=== PATIENT | female | born 1965 | race Caucasian/White ===

== ENCOUNTER 2017-04-08 19:26 | Emergency (ER) | payer MEDICARE ==
[~2017-04-08 19:26] MED LIST: CEFTIN500 MG PO; FLONASE 0.05% N16 GM; LEVOTHYROXINE88 MCG PO; MEDROL4 MG PO; PROTONIX20 MG PO; SIMVASTATIN20 MG PO; SPIRIVA18 MCG INH; SYMBICORT 160-1 INHA INH; SYMBICORT 16010.2 GM INH; TOPROL XL50 MG PO; VENTOLIN HFA 66.7 GM INH; VENTOLIN/PROVE0.5 ML INH; ZESTRIL/PRINIVI10 MG PO; ZITHROMAX250 MG PO
== END 2017-04-08 20:25 | disposition home or self-care (01) ==
LOC: ER1 19:26
DX: L23.7 Allergic contact dermatitis due to plants, except food (principal); I10 Essential (primary) hypertension; J44.9 Chronic obstructive pulmonary disease, unspecified; Z90.710 Acquired absence of both cervix and uterus; Z90.49 Acquired absence of other specified parts of digestive tract
CPT/HCPCS: 96372; 99282; J2930

== ENCOUNTER 2020-11-25 20:00 | Inpatient (IN) | payer MEDICARE, OTHER ==
[~2020-11-25] VITALS: Ht 154.9 cm; Wt 59.0 kg
[~2020-11-25 20:00] MED LIST changes: +ALPRAZOLAM0.5 MG PO; +BACTROBAN OINT22 GM EXT; +BENADRYL 50MG C50 MG PO; +CYCLOBENZAPRINE10 MG PO; +IBUPROFEN600 MG PO; +LISINOPRIL20 MG PO; +LISINOPRIL40 MG PO; +LOPRESSOR100 MG PO; +MELOXICAM15 MG PO; +METOPROLOL TAR100 MG PO; +NAPROSYN500 MG PO; +PANTOPRAZOLE SO40 MG PO; +PERCOCET 5/325 T1 EA PO; +PREDNISONE 50 M50 MG PO; +PREDNISONE20 MG PO; +XANAX0.5 MG PO; +ZETIA10 MG PO; +ZOCOR40 MG PO
[2020-11-25 20:47] LABS: HEMOGLOBIN 15.3 gm/dl (12.3-15.3); RED BLOOD COUNT 4.82 M/UL (4.00-5.10); WHITE BLOOD COUNT 8.6 K/UL (4.5-11.0)
[2020-11-25 21:12] LABS: BUN/CREATININE RATIO 17 (0-10)
[2020-11-26] MEDS ORDERED: BUSPIRONE HCL5 MG PO (00:44)
[2020-11-26] MEDS ORDERED: CATAPRES 0.1MG0.1 MG PO (00:48)
[2020-11-26 06:18] LABS: HEMOGLOBIN 14.9 gm/dl (12.3-15.3); RED BLOOD COUNT 4.75 M/UL (4.00-5.10); WHITE BLOOD COUNT 8.1 K/UL (4.5-11.0)
[2020-11-26 06:39] LABS: BUN/CREATININE RATIO 15 (0-10)
[2020-11-27 05:25] LABS: BUN/CREATININE RATIO 18 (0-10)
[2020-11-28] MEDS ORDERED: LISINOPRIL20 MG PO (09:04)
[2020-11-28] MEDS ORDERED: ALPRAZOLAM0.5 MG PO (09:59)
[2020-11-28] MEDS ORDERED: HYDROCHLOROTH12.5 MG PO (10:03)
[2020-12-05 08:26] LABS: 6-ACETYLMORPHINE Negative (.); CODEINE Negative (.); DIHYDROCODEINE 1.3 ng/mL (.); HYDROCODONE 5.2 ng/mL (.); HYDROMORPHONE Negative (.); MORPHINE Negative (.); OPIATE CONFIRMATION Positive (.); OXYCODONE Negative (.); OXYCODONES CONFIRMATION Negative (.); OXYMORPHONE Negative (.)
[2020-12-05 12:14] LABS: 7-AMINOCLONAZEPAM Negative (.); ALPRAZOLAM 20.3 ng/mL (.); BENZODIAZEPINES CONFIRM Positive (.); CHLORDIAZEPOXIDE Negative (.); CLONAZEPAM Negative (.); DESALKYLFLURAZEPAM Negative (.); DESMETHYLCHLORDIAZEPOXIDE Negative (.); DESMETHYLDIAZEPAM Negative (.); DIAZEPAM Negative (.); FLURAZEPAM Negative (.); LORAZEPAM Negative (.); MIDAZOLAM Negative (.); OXAZEPAM Negative (.); TEMAZEPAM Negative (.); TRIAZOLAM Negative (.)
== END 2020-11-28 11:23 | disposition home or self-care (01) | DRG 311 ==
LOC: ER1 20:00 → PROG CARE 21:23 → ZEROF 21:23 → PROG CARE 11-27 11:09
PROVIDERS: Emergency Medicine; Internal Medicine; ADMIT Internal Medicine
DX: I20.9 Angina pectoris, unspecified (principal); I24.9 Acute ischemic heart disease, unspecified; I11.9 Hypertensive heart disease without heart failure; I10 Essential (primary) hypertension; E78.5 Hyperlipidemia, unspecified; E03.9 Hypothyroidism, unspecified; I70.1 Atherosclerosis of renal artery; F41.9 Anxiety disorder, unspecified; G47.30 Sleep apnea, unspecified; R51.9 Headache, unspecified; Z98.890 Other specified postprocedural states; Z82.49 Family history of ischemic heart disease and other diseases of the circulatory system
CPT/HCPCS: 71045; 80048; 80053; 80307; 82550; 82553; 83874; 84439; 84443; 84484; 85025; 93005; 96372; 96374; 96376; 99285; J1650; J7070; U0002; U0003

== ENCOUNTER → 2020-12-19 | Outpatient (CLI) | payer MEDICARE, OTHER ==
[~2020-12-19] MED LIST changes: +AMBIEN10 MG PO; +BUSPIRONE HCL5 MG PO; +CATAPRES 0.1MG0.1 MG PO; +HYDROCHLOROTH12.5 MG PO
== END ==
LOC: LAB 15:05
DX: M41.9 Scoliosis, unspecified (principal)

== ENCOUNTER → 2020-12-20 | Outpatient (CLI) | payer MEDICARE, OTHER ==
[2020-12-20 15:37] LABS: HEMOGLOBIN 14.1 gm/dl (12.3-15.3); RED BLOOD COUNT 4.37 M/UL (4.00-5.10); WHITE BLOOD COUNT 7.4 K/UL (4.5-11.0)
[2020-12-20 16:00] LABS: BUN/CREATININE RATIO 8 (0-10)
[2020-12-21 08:14] LABS: VITAMIN D, 25-HYDROXY 26.5 ng/mL (30.0-100.0)
[2020-12-21 13:14] LABS: CORTISOL 3.2 ug/dL (.)
== END ==
LOC: LAB 14:56
DX: M41.84 Other forms of scoliosis, thoracic region (principal); G89.4 Chronic pain syndrome; Z79.891 Long term (current) use of opiate analgesic; M51.36 Other intervertebral disc degeneration, lumbar region; M51.34 Other intervertebral disc degeneration, thoracic region
CPT/HCPCS: 36415; 72070; 72100; 80053; 82533; 82607; 85025

== ENCOUNTER 2021-01-08 15:47 | Emergency (ER) | payer MEDICARE, OTHER ==
[~2021-01-08 15:47] MED LIST changes: -AMBIEN10 MG PO
[2021-01-08 18:41] LABS: HEMOGLOBIN 13.9 gm/dl (12.3-15.3); RED BLOOD COUNT 4.34 M/UL (4.00-5.10); WHITE BLOOD COUNT 6.4 K/UL (4.5-11.0)
[2021-01-08 19:03] LABS: BUN/CREATININE RATIO 12 (0-10)
== END 2021-01-08 20:23 | disposition home or self-care (01) ==
LOC: ER1 15:47
PROVIDERS: Student in an Organized Health Care Education/Training Program
DX: I10 Essential (primary) hypertension (principal); R94.31 Abnormal electrocardiogram [ECG] [EKG]; Z88.5 Allergy status to narcotic agent; Z88.8 Allergy status to other drugs, medicaments and biological substances; Z79.899 Other long term (current) drug therapy
CPT/HCPCS: 36415; 71045; 80053; 82550; 82553; 83874; 84484; 85025; 85610; 85730; 93005; 99284

== ENCOUNTER 2021-01-16 13:30 | Emergency (ER) | payer MEDICARE, OTHER ==
[2021-01-16 14:40] LABS: HEMOGLOBIN 14.1 gm/dl (12.3-15.3); RED BLOOD COUNT 4.38 M/UL (4.00-5.10); WHITE BLOOD COUNT 7.2 K/UL (4.5-11.0)
[2021-01-16 15:39] LABS: BUN/CREATININE RATIO 11 (0-10)
== END 2021-01-16 16:00 | disposition home or self-care (01) ==
LOC: ER1 13:30
PROVIDERS: Emergency Medicine
DX: M54.6 Pain in thoracic spine (principal); G89.29 Other chronic pain; I10 Essential (primary) hypertension; E11.9 Type 2 diabetes mellitus without complications; M41.9 Scoliosis, unspecified; Z90.49 Acquired absence of other specified parts of digestive tract; Z90.710 Acquired absence of both cervix and uterus
CPT/HCPCS: 71045; 80053; 82550; 82553; 83874; 84484; 85025; 93005; 99284

== ENCOUNTER 2021-01-18 00:26 | Emergency (ER) | payer MEDICARE, OTHER ==
[2021-01-18 01:03] LABS: HEMOGLOBIN 14.4 gm/dl (12.3-15.3); RED BLOOD COUNT 4.51 M/UL (4.00-5.10); WHITE BLOOD COUNT 8.8 K/UL (4.5-11.0)
[2021-01-18 01:25] LABS: BUN/CREATININE RATIO 18 (0-10)
== END 2021-01-18 06:43 | disposition home or self-care (01) ==
LOC: ER1 00:26
PROVIDERS: Family Medicine
DX: I10 Essential (primary) hypertension (principal); R07.9 Chest pain, unspecified; Z88.8 Allergy status to other drugs, medicaments and biological substances; Z90.710 Acquired absence of both cervix and uterus
CPT/HCPCS: 71046; 80053; 82550; 82553; 83874; 84484; 85025; 93005; 99285

== ENCOUNTER → 2021-01-21 | Outpatient (CLI) | payer MEDICARE, OTHER ==
[~2021-01-21] MED LIST changes: +AMBIEN10 MG PO
== END ==
LOC: HEART CORB 08:52
DX: I10 Essential (primary) hypertension (principal); R00.2 Palpitations; R00.0 Tachycardia, unspecified; I07.1 Rheumatic tricuspid insufficiency
CPT/HCPCS: 93306

== ENCOUNTER 2021-01-27 17:57 | Emergency (ER) | payer MEDICARE, OTHER ==
[~2021-01-27 17:57] MED LIST changes: -AMBIEN10 MG PO
[2021-01-27 18:42] LABS: HEMOGLOBIN 15.7 gm/dl (12.3-15.3); RED BLOOD COUNT 4.88 M/UL (4.00-5.10); WHITE BLOOD COUNT 9.1 K/UL (4.5-11.0)
[2021-01-27 19:14] LABS: BUN/CREATININE RATIO 17 (0-10)
== END 2021-01-27 22:41 | disposition home or self-care (01) ==
LOC: ER1 17:57
PROVIDERS: Physician Assistant
DX: I10 Essential (primary) hypertension (principal); R00.2 Palpitations; R51.9 Headache, unspecified; E87.6 Hypokalemia; Z90.710 Acquired absence of both cervix and uterus; Z88.5 Allergy status to narcotic agent; Z79.899 Other long term (current) drug therapy
CPT/HCPCS: 70450; 71045; 80053; 80307; 81001; 82550; 82553; 83874; 84484; 85025; 93005; 96374; 99285

== ENCOUNTER 2021-02-16 14:52 | Emergency (ER) | payer MEDICARE, OTHER ==
[2021-02-16 15:50] LABS: BUN/CREATININE RATIO 10 (0-10)
[2021-02-16 16:27] LABS: HEMOGLOBIN 12.3 gm/dl (12.3-15.3); RED BLOOD COUNT 4.03 M/UL (4.00-5.10); WHITE BLOOD COUNT 6.9 K/UL (4.5-11.0)
== END 2021-02-16 17:30 | disposition home or self-care (01) ==
LOC: ER1 14:52
PROVIDERS: Physician Assistant
DX: I10 Essential (primary) hypertension (principal); R00.0 Tachycardia, unspecified; R51.9 Headache, unspecified; Z90.49 Acquired absence of other specified parts of digestive tract
CPT/HCPCS: 71045; 80053; 82550; 82553; 83874; 83880; 84439; 84443; 84484; 85025; 93005; 96374; 99284

== ENCOUNTER 2021-02-25 01:21 | Emergency (ER) | payer MEDICARE, OTHER ==
[2021-02-25 02:22] LABS: HEMOGLOBIN 14.9 gm/dl (12.3-15.3); RED BLOOD COUNT 4.65 M/UL (4.00-5.10); WHITE BLOOD COUNT 8.7 K/UL (4.5-11.0)
[2021-02-25 03:12] LABS: BUN/CREATININE RATIO 12 (0-10)
[2021-02-25] MEDS ORDERED: AMBIEN10 MG PO (05:15)
== END 2021-02-25 05:55 | disposition home or self-care (01) ==
LOC: ER1 01:21
PROVIDERS: Family Medicine
DX: I10 Essential (primary) hypertension (principal); R51.9 Headache, unspecified
CPT/HCPCS: 80053; 82550; 82553; 83874; 84484; 85025; 93005; 96374; 99283

== ENCOUNTER 2021-06-16 09:36 | Emergency (ER) | payer MEDICARE, OTHER ==
[~2021-06-16 09:36] MED LIST changes: +AMBIEN10 MG PO
[2021-06-16] MEDS ORDERED: TORADOL 10 MG T10 MG PO (10:37)
[2021-06-16] MEDS ORDERED: ERYTHROMYCIN O3.5 GM OD (10:37)
== END 2021-06-16 10:50 | disposition home or self-care (01) ==
LOC: ER1 09:36
DX: H57.12 Ocular pain, left eye (principal); I10 Essential (primary) hypertension; Z88.5 Allergy status to narcotic agent
CPT/HCPCS: 99283

== ENCOUNTER → 2021-09-24 | Outpatient (CLI) | payer MEDICARE, OTHER ==
[~2021-09-24] MED LIST changes: +ALDACTONE 25MG25 MG PO; +CATAPRES-TTS 11 EACH TP; +ERYTHROMYCIN O3.5 GM OD; +HYDROCHLOROTHIA25 MG PO; +TORADOL 10 MG T10 MG PO; +ZESTRIL 40 MG T40 MG PO
== END ==
LOC: EMI 09:00 → KOH-I 09:00
DX: M54.50 Low back pain, unspecified (principal); M51.37 Other intervertebral disc degeneration, lumbosacral region
CPT/HCPCS: 72148; 73721

== ENCOUNTER 2022-02-15 08:55 | Emergency (ER) | payer MEDICARE, OTHER | END 2022-02-15 10:04 | disposition home or self-care (01) | LOC: ER1 08:55 | DX: H57.11 Ocular pain, right eye (principal); Z88.5 Allergy status to narcotic agent; Z88.8 Allergy status to other drugs, medicaments and biological substances | CPT/HCPCS: 99283 ==

== ENCOUNTER 2022-05-09 04:49 | Emergency (ER) | payer MEDICARE, OTHER ==
[2022-05-09 05:36] LABS: HEMOGLOBIN 16.7 gm/dl (12.3-15.3); RED BLOOD COUNT 4.91 M/UL (4.00-5.10); WHITE BLOOD COUNT 8.7 K/UL (4.5-11.0)
[2022-05-09 06:25] LABS: BUN/CREATININE RATIO 24 (0-10)
[2022-05-09] MEDS ORDERED: ZOFRAN ODT 4 MG4 MG SL (06:37)
== END 2022-05-09 06:45 | disposition home or self-care (01) ==
LOC: ER1 04:49
PROVIDERS: Emergency Medicine
DX: R11.2 Nausea with vomiting, unspecified (principal); F19.239 Other psychoactive substance dependence with withdrawal, unspecified; I10 Essential (primary) hypertension; Z88.5 Allergy status to narcotic agent; Z88.8 Allergy status to other drugs, medicaments and biological substances
CPT/HCPCS: 71045; 80053; 82550; 82553; 83735; 84484; 85025; 93005; 96374; 96375; 99284; J1885; J2405

== ENCOUNTER → 2022-05-20 | Outpatient (CLI) | payer MEDICARE, OTHER ==
[~2022-05-20] MED LIST changes: +CLONIDINE PATCH TOP; +DOCUSATE SODIU250 MG PO; +HYDROCODONE-AC1 EACH PO; +LOPRESSOR50 MG PO; +MOXIFLOXACIN3 M1 EYERT; +NORVASC5 MG PO; +WOMEN'S 50 PLU1 EACH PO; +ZOFRAN 4 MG TAB4 MG PO; +ZOFRAN ODT 4 MG4 MG SL
[2022-05-20 14:20] LABS: HEMOGLOBIN 15.5 gm/dl (12.3-15.3); RED BLOOD COUNT 4.6 M/UL (4.00-5.10); WHITE BLOOD COUNT 7.3 K/UL (4.5-11.0)
[2022-05-20 14:59] LABS: BUN/CREATININE RATIO 17 (0-10)
== END ==
LOC: OPSV2 12:17
PROVIDERS: Obstetrics & Gynecology
DX: Z01.818 Encounter for other preprocedural examination (principal); N81.10 Cystocele, unspecified; R94.31 Abnormal electrocardiogram [ECG] [EKG]
CPT/HCPCS: 36415; 71046; 80053; 81001; 85025; 93005

== ENCOUNTER → 2022-05-26 | Day surgery (SDC) | payer MEDICARE, OTHER | END | disposition home or self-care (01) | LOC: OR 05:27 | DX: N81.10 Cystocele, unspecified (principal); K46.9 Unspecified abdominal hernia without obstruction or gangrene; K66.0 Peritoneal adhesions (postprocedural) (postinfection); N81.6 Rectocele; Z90.710 Acquired absence of both cervix and uterus | CPT/HCPCS: C1769; J0690; J1100; J1885; J2001; J2250; J2405; J2704; J3010; J7050 ==